=== PATIENT | male | born 1990 ===

== ENCOUNTER 2019-03-29 20:58 | Emergency (ER) | payer OTHER ==
[2019-03-29] MEDS ORDERED: IBUPROFEN PO ONE (21:26)
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
[2019-03-29 21:30] VITALS: BP 132/82
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
[2019-03-29] MEDS ORDERED: NORCO 5/325 PO ONE (22:56)
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
== END 2019-03-29 23:53 | disposition home or self-care (01) ==
LOC: ED 20:58
DX: S39.012A Strain of muscle, fascia and tendon of lower back, initial encounter (principal); V89.2XXA Person injured in unspecified motor-vehicle accident, traffic, initial encounter; Y93.89 Activity, other specified; Y92.89 Other specified places as the place of occurrence of the external cause; Y99.8 Other external cause status
CPT/HCPCS: 72100